=== PATIENT | female | born 1985 | race Caucasian/White ===

== ENCOUNTER 2021-05-15 10:20 | Emergency (ER) | payer BC ==
[~2021-05-15] VITALS: Ht 165.1 cm; Wt 77.1 kg
--- NOTE | 2021-05-15 10:40 | NUR ---
Placed in room 4 . Placed on air sampling and monitoring, blood pressure machine and pulse oximeter. To gown for exam. Side rails up. Report given to Pierce.
--- NOTE | 2021-05-15 10:45 | NUR ---
PT CAME IN FROM HOME C/O HIGH BLOOD PRESSURE AND DAILY FIELD. STATES SHE WAS SEEN AT URGENT CARE THIS PAST WEEK BUT WANTED TO BE SEEN IN THE ER. 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 PT REPORTS STARTING ADDERALL FOR ADHD THIS PAST SEPTEMBER. PT IS AAOX4, AMBULATORY, V/S STABLE, NO DISTRESS NOTED
[2021-05-15 10:46] VITALS: BP_SYST 149
--- NOTE | 2021-05-15 10:53 | NUR ---
ER DR. PEDROZA AT THE BEDSIDE EXAMINING PT
--- NOTE | 2021-05-15 11:04 | NUR ---
LAB AT THE BEDSIDE FOR BLOOD DRAW
--- NOTE | 2021-05-15 11:10 | NUR ---
Patient transported to radiology via WC, accompanied by STAFF.
[2021-05-15 11:13] LABS: BASOPHILS % (AUTO) 0.4 % (0.0-2.0); EOSINOPHILS % (AUTO) 0.7 % (0.0-4.0); HEMATOCRIT 37.8 % (36-48); HEMOGLOBIN 12.6 g/dL (12.0-16.0); LYMPHOCYTES # (AUTO) 1.6 K/uL (1.0-5.5); LYMPHOCYTES % (AUTO) 27.7 % (20.5-51.5); MEAN CORPUSCULAR HEMOGLOBIN 28 pg (27-31); MEAN CORPUSCULAR HGB CONC 33 % (32-36); MEAN CORPUSCULAR VOLUME 84 fL (79.0-98.0); MONOCYTES # (AUTO) 0.3 K/uL (0.0-1.0); MONOCYTES % (AUTO) 4.6 % (1.7-9.3); NEUTROPHILS # (AUTO) 3.8 K/uL (1.8-7.7); NEUTROPHILS % (AUTO) 66.6 % (40.0-70.0); PLATELET COUNT (AUTO) 272 K/uL (130-430); RED BLOOD CELL COUNT(AUTO) 4.53 MIL/uL (4.2-6.2); RED CELL DISTRIBUTION WIDTH 13.8 % (9.0-15.0); WHITE BLOOD COUNT (AUTO) 5.7 K/uL (4.8-10.8)
--- NOTE | 2021-05-15 11:17 | NUR ---
Returned from radiology, back to [facility].
[2021-05-15 11:36] LABS: BILIRUBIN,URINE NEGATIVE (NEGATIVE); BLOOD, URINE NEGATIVE (NEGATIVE); CLARITY/URINE OTHER (CLEAR); COLOR,URINE YELLOW (YELLOW); GLUCOSE,URINE NEGATIVE (NEGATIVE); KETONES,URINE NEGATIVE (NEGATIVE); LEUKOCYTE ESTERASE ,URINE TRACE (NEGATIVE); NITRITE, URINE NEGATIVE (NEGATIVE); PROTEIN URINE NEGATIVE (NEGATIVE); UROBILINOGEN,URINE 0.2 (0.2-1.0)
[2021-05-15 11:44] LABS: CALCIUM 8.6 mg/dL (8.4-11.0); CREATININE 0.78 mg/dL (0.55-1.30)
[2021-05-15 11:50] LABS: ALBUMIN 3.7 g/dL (3.4-4.8); TOTAL BILIRUBIN 0.2 mg/dL (0.0-1.0)
[2021-05-15 11:53] LABS: BACTERIA,URINE FEW /HPF (None Seen); MUCUS,URINE 1+ /LPF (None Seen)
--- NOTE | 2021-05-15 12:05 | NUR ---
Blood pressure repeated on right forearm (160/97)
[2021-05-15] MEDS ORDERED: CEFU250T85 PO (12:41)
[2021-05-15 12:50] VITALS: BP_SYST 160
--- NOTE | 2021-05-15 12:50 | NUR ---
Patient given written and verbal discharge instructions and verbalizes understanding. ER MD discussed with patient the results and treatment provided. Patient in stable condition. ID arm band removed. Rx of CAFTIN given. Patient educated on pain management and to follow up with PMD. Pain Scale 0/10. Opportunity for questions provided and answered. Medication side effect fact sheet provided.
== END 2021-05-15 12:50 | disposition home or self-care (01) ==
LOC: SED 10:20
DX: R51.9 Headache, unspecified (principal); I15.9 Secondary hypertension, unspecified; F41.9 Anxiety disorder, unspecified; Z79.899 Other long term (current) drug therapy
CPT/HCPCS: 36415; 70450-TC; 76376; 80053; 81000; 81003; 85025; 87086; 93005; 99285